=== PATIENT | male | born 1995 | race Two or more races ===

== ENCOUNTER 2019-12-09 05:49 | Emergency (ER) | payer OTHER ==
[~2019-12-09] VITALS: Ht 167.6 cm; Wt 133.8 kg
--- NOTE | 2019-12-09 06:05 | NUR ---
ED Nurse Note: Pt ambulated to ED c/o dysuria for 2 days with burning, denies any medical history or previous UTI's. VSS. urine sent to lab
[2019-12-09 06:17] LABS: APPEARANCE,URINE CLEAR; BILIRUBIN, URINE NEGATIVE (NEGATIVE); COLOR,URINE PALE YELLOW; GLUCOSE, URINE (UA) NEGATIVE (NEGATIVE); KETONES,URINE NEGATIVE (NEGATIVE); LEUKOCYTE ESTERASE ,URINE NEGATIVE (NEGATIVE); NITRITE,URINE NEGATIVE (NEGATIVE); PH,URINE 5 (4.5-8.0); PROTEIN,URINE NEGATIVE (NEGATIVE); UROBILINOGEN,URINE NORMAL MG/DL (0.0-1.0)
--- NOTE | 2019-12-09 06:26 | Emergency Room Report ---
History of Present Illness General Chief Complaint: Male Urogenital Problems Source: Patient Present Illness [facility] Disclaimer: Please note that this report is being documented using DRAGON technology. This can lead to erroneous entry secondary to incorrect interpretation by the dictating instrument. HPI: 24-year-old male no past medical history presents with dysuria. He states he has had burning on urination for the past 2 days. Denies any penile discharge. No fevers no abdominal pain no nausea or vomiting. Some urinary frequency. 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: No COVID-19 Screening: Negative COVID-19 Patient History Reviewed Nursing Documentation: PMH: Agreed; PSxH: Agreed Nursing Documentation-PMH Past Medical History: No Stated History Review of Systems All Other Systems: negative except mentioned in HPI Physical Exam Vital Signs Date Time Temp Pulse Resp B/P (MAP) Pulse Ox O2 Delivery O2 Flow Rate FiO2 12/09/19 06:02 98.1 85 18 138/70 (92) 99 Room Air Sp02 EP Interpretation: reviewed, normal General Appearance: well appearing, no apparent distress Head: normocephalic, atraumatic Eyes: bilateral eye PERRL, bilateral eye EOMI ENT: hearing grossly normal, moist mucus membranes Neck: full range of motion, supple Respiratory: lungs clear, normal breath sounds, no rhonchi, no respiratory distress, no retraction, no wheezing Cardiovascular #1: normal peripheral pulses, regular rate, rhythm, no murmur Gastrointestinal: non tender, soft, non-distended, no guarding Neurologic: alert, oriented x3, no focal defects Skin: normal color, warm/dry Medical Decision Making ER Course MDM: Differential diagnosis included but not limited to UTI, did consider STD, less likely pyelonephritis Clinical course-urinalysis was sent. Exam benign. Patient denied vaginal discharge. Patient's urinalysis did show evidence of RBCs and WBCs. Had no flank pain, no abdominal pain. At this time I will treat for UTI with p.o. antibiotic. Did recommend follow-up with PMD. STD testing was sent. Patient stable for discharge. Labs -urinalysis showed RBCs and WBCs Laboratory Tests Test 12/09/19 06:05 Urine Color Pale yellow Urine Appearance Clear Urine pH 5 (4.5-8.0) Urine Specific [place] 1.020 (1.005-1.035) Urine Protein Negative (NEGATIVE) Urine Glucose (UA) Negative (NEGATIVE) Urine Ketones Negative (NEGATIVE) Urine Blood 4+ (NEGATIVE) H Urine Nitrite Negative (NEGATIVE) Urine Bilirubin Negative (NEGATIVE) Urine Urobilinogen Normal MG/DL (0.0-1.0) Urine Leukocyte Esterase Negative (NEGATIVE) Urine RBC Tntc /HPF (0 - 0) H Urine WBC 5-10 /HPF (0 - 0) H Urine Squamous Epithelial Cells Few /LPF (NONE/OCC) Urine Bacteria None /HPF (NONE) Last Vital Signs Date Time Temp Pulse Resp B/P (MAP) Pulse Ox O2 Delivery O2 Flow Rate FiO2 12/09/19 06:02 98.1 85 18 138/70 (92) 99 Room Air Disposition: HOME, SELF-CARE Condition: Stable Scripts Nitrofurantoin Monohyd/M-Cryst* (MACROBID 100 MG*) 100 Mg Capsule 100 MG ORAL EVERY 12 HOURS, #14 CAP Prov: Renny Montoya M.D. 12/09/19 Renny Montoya M.D. Dec 09, 2019 06:26
[2019-12-09 06:32] VITALS: BP 138/70
[2019-12-09 06:35] VITALS: BP 138/70
[2019-12-09] MEDS ORDERED: NITROFURANTOIN100 M2 ORAL (06:35)
--- NOTE | 2019-12-09 06:35 | NUR ---
ER DISCHARGE NOTE: Patient is cleared to be discharged per ERMD, pt is aox4, on room air, with stable vital signs. pt was given dc and prescription instructions, pt was able to verbalize understanding, pt id band removed. pt is able to ambulate with steady gait. pt took all belongings.
== END 2019-12-09 06:35 | disposition home or self-care (01) ==
LOC: EMR 06:18
DX: N39.0 Urinary tract infection, site not specified (principal)
CPT/HCPCS: 81003; Z7502; 99282